=== PATIENT | male | born 1945 | race Caucasian/White ===

== ENCOUNTER 2017-08-22 11:17 | Inpatient (IN) ==
[~2017-08-22 11:17] MED LIST: ASPIRIN 325 MG TABLET PO ONE; DIAZEPAM 5 MG TABLET PO ONE; MAGNESIUM SULF RIDER 2 GM in PREMIX 1 EACH IV PRN; POTASSIUM CHLORIDE RIDER 10 MEQ in PREMIX 1 EACH IV PRN; diphenhydrAMINE CAP 25 MG CAPSULE PO ONE
[2017-08-22] MEDS ORDERED: methylPREDNISolone SOD SUC 125 MG/2 ML VIAL IM ONE (11:54)
[2017-08-22] MEDS ORDERED: methylPREDNISolone SOD SUC 125 MG/2 ML VIAL ONE (11:57)
[2017-08-22] MEDS ORDERED: diphenhydrAMINE CAP 25 MG CAPSULE ONE (11:57)
[2017-08-22] MEDS ORDERED: DIAZEPAM 5 MG TABLET ONE (11:57)
[2017-08-22] MEDS: SODIUM CHLORIDE 0.9% 1,000 ML IV SCH ×2 (12:00→18:09)
[2017-08-22] MEDS ORDERED: methylPREDNISolone SOD SUC 125 MG/2 ML VIAL IV ONE (12:07)
[2017-08-22] MEDS ORDERED: HYDROmorphone 2 MG/1 ML VIAL ONE (12:41)
[2017-08-22] MEDS ORDERED: MIDAZOLAM 2 MG/2 ML VIAL ONE (12:41)
[2017-08-22] MEDS ORDERED: HEPARIN/NACL 0.9% 2 UNITS/ML 2,000 ML IV ONE (12:41)
[2017-08-22] MEDS ORDERED: LIDOCAINE 1% 20 ML VIAL ONE (12:41)
[2017-08-22] MEDS ORDERED: NITROGLYCERIN DRIP 50 MG/250 ML BOTTLE IV ONE (12:49)
[2017-08-22] MEDS ORDERED: VERAPAMIL 5 MG/2 ML VIAL ONE (12:49)
[2017-08-22] MEDS ORDERED: ENOXAPARIN 30 MG/0.3 ML SYRINGE ONE (13:25)
[2017-08-22] MEDS ORDERED: SODIUM CHLORIDE 0.9% 1,000 ML IV SCH (14:00)
[2017-08-22] MEDS: HEPARIN DRIP 25,000 UNITS/500 ML PREMIX IV SCH (17:55)
[2017-08-22 18:07] LABS: Basophils # 0.1 10*3/uL (0.0-0.2); Basophils % 0.7 % (0.0-0.8); Eosinophils % 0.1 % (0.00-10.9); Hemoglobin 14.5 GM/DL (14.0-18.0); Immature Granulocytes % 0.9 %; Immature Granulocytes Absolute 0.07 #; Lymphocytes # 0.6 10*3/uL (1.4-4.0); Lymphocytes % 7.4 % (21.2-54.2); Mean Corpuscular HGB Conc 33.7 GM/DL (32-36); Mean Corpuscular Hemoglobin 32 PG (27-34); Mean Corpuscular Volume 93.9 FL (87-102); Mean Platelet Volume 11.5 FL (9.6-12.0); Monocytes # 0.1 10*3/uL (0.11-0.8); Monocytes % 1.2 % (1.7-12.7); Neutrophils # 6.7 10*3/uL (1.4-7.4); Neutrophils % 89.7 % (38.7-73.9); Platelet Count 198 T/CUMM (130-400); Red Blood Count 4.58 MC/CUMM (3.8-5.5); Red Cell Distribution Width 13.5 % (9.3-17.3); White Blood Count 7.5 T/CUMM (4-12)
[2017-08-22] MEDS ORDERED: CILOSTAZOL 100 MG TABLET PO SCH (21:00)
[2017-08-22] MEDS ORDERED: ATORVASTATIN 20 MG TABLET PO SCH (21:00)
[2017-08-22] MEDS: CHLORHEXIDINE 0.12% ORAL RINSE 60 ML BOTTLE SWISH/SPIT SCH (21:27)
[2017-08-22] MEDS: DICLOFENAC SODIUM 75 MG TABLET PO SCH (21:27)
[2017-08-22] MEDS: ASPIRIN EC 81 MG TABLET PO SCH (21:27)
[2017-08-22] MEDS: AMITRIPTYLINE 25 MG TABLET PO SCH (21:27)
[2017-08-22] MEDS: GABAPENTIN 300 MG CAPSULE PO SCH (21:27)
[2017-08-22] MEDS: AMITRIPTYLINE 100 MG TABLET PO SCH (21:27)
[2017-08-22] MEDS: ATORVASTATIN 80 MG TABLET PO SCH (21:27)
[2017-08-23 06:04] LABS: Basophils % 0.5 % (0.0-0.8); Eosinophils # 0.1 10*3/uL (0.0-0.87); Eosinophils % 0.6 % (0.00-10.9); Hematocrit 36.8 VOL% (42.0-52.0); Immature Granulocytes % 0.6 %; Immature Granulocytes Absolute 0.05 #; Lymphocytes # 1.7 10*3/uL (1.4-4.0); Lymphocytes % 20.9 % (21.2-54.2); Mean Corpuscular HGB Conc 33.7 GM/DL (32-36); Mean Corpuscular Hemoglobin 31 PG (27-34); Mean Corpuscular Volume 93.2 FL (87-102); Mean Platelet Volume 11.8 FL (9.6-12.0); Monocytes # 0.7 10*3/uL (0.11-0.8); Monocytes % 8.8 % (1.7-12.7); Neutrophils # 5.4 10*3/uL (1.4-7.4); Neutrophils % 68.6 % (38.7-73.9); Platelet Count 161 T/CUMM (130-400); Red Blood Count 3.95 MC/CUMM (3.8-5.5); Red Cell Distribution Width 13.4 % (9.3-17.3); White Blood Count 7.9 T/CUMM (4-12)
[2017-08-23 06:17] LABS: Hemoglobin 12.4 GM/DL (14.0-18.0)
[2017-08-23 06:54] LABS: Calcium 8.7 MG/DL (8.5-10.1); Magnesium 2.3 MG/DL (1.8-2.4); Osmolality,Calculated 275.7 MOS/KG (273-304); Potassium 3.6 MMOL/L (3.5-5.1)
[2017-08-23] MEDS ORDERED: OMEGA 3 ACID ETHYL ESTERS 1 GM CAPSULE PO SCH (09:00)
[2017-08-23] MEDS ORDERED: amLODIPine 10 MG TABLET PO SCH (09:00)
[2017-08-23] MEDS ORDERED: FOLIC ACID 1 MG TABLET PO SCH (09:00)
[2017-08-23] MEDS ORDERED: DULoxetine 30 MG CAPSULE PO SCH (09:00)
[2017-08-23] MEDS ORDERED: PANTOPRAZOLE 40 MG TABLET PO SCH (09:00)
[2017-08-23] MEDS ORDERED: METOPROLOL TARTRATE 25 MG TABLET PO SCH ×2 (09:00)
[2017-08-23] MEDS ORDERED: CALCIUM (CARBONATE)/VITAMIN D 600 MG-400 UNIT TABLET PO SCH (09:00)
[2017-08-23] MEDS: GABAPENTIN 300 MG CAPSULE PO SCH ×3 (09:05→21:02)
[2017-08-23] MEDS: DICLOFENAC SODIUM 75 MG TABLET PO SCH ×2 (09:06→21:02)
[2017-08-23] MEDS: CHLORHEXIDINE 0.12% ORAL RINSE 60 ML BOTTLE SWISH/SPIT SCH ×2 (09:06→21:26)
[2017-08-23] MEDS: HEPARIN DRIP 25,000 UNITS/500 ML PREMIX IV SCH (12:23)
[2017-08-23] MEDS: CHLORHEXIDINE 4% SOLN 118 ML BOTTLE TOP SCH ×2 (15:37→21:26)
[2017-08-23] MEDS ORDERED: METOPROLOL TARTRATE 50 MG TABLET PO SCH (16:19)
[2017-08-23] MEDS: ATORVASTATIN 80 MG TABLET PO SCH (21:02)
[2017-08-23] MEDS: AMITRIPTYLINE 100 MG TABLET PO SCH (21:02)
[2017-08-23] MEDS: AMITRIPTYLINE 25 MG TABLET PO SCH (21:02)
[2017-08-23] MEDS: ASPIRIN EC 81 MG TABLET PO SCH (21:02)
[2017-08-24] MEDS ORDERED: CEFUROXIME INJ 1,500 MG in SYRINGE 1 EACH IV ONE (05:00)
[2017-08-24 05:04] LABS: Allen Test Positive; Pt O2 Delivery Device Room Air
[2017-08-24 05:05] LABS: ABG Base Excess 0.5 MMOL/L (-2.5-2.5); ABG HCO3 25.1 MMOL/L (20-26); ABG Oxygen Saturation 94.4 % (95-100); ABG PCO2 40.2 MM HG (35-48); ABG PH 7.413 (7.35-7.45); ABG TCO2 26.3 MMOL/L (23-27)
[2017-08-24] MEDS ORDERED: TISSUE ADHESIVE 1 EACH APPLICATOR TOP ONE (05:21)
[2017-08-24] MEDS ORDERED: PAPAVERINE 60 MG/2 ML VIAL ONE (05:21)
[2017-08-24] MEDS ORDERED: VANCOMYCIN 1,000 MG VIAL ONE (05:22)
[2017-08-24 05:31] LABS: Basophils # 0.1 10*3/uL (0.0-0.2); Basophils % 1.1 % (0.0-0.8); Eosinophils # 0.4 10*3/uL (0.0-0.87); Eosinophils % 5.3 % (0.00-10.9); Hematocrit 40.8 VOL% (42.0-52.0); Hemoglobin 13.3 GM/DL (14.0-18.0); Immature Granulocytes % 0.4 %; Immature Granulocytes Absolute 0.03 #; Lymphocytes # 2.2 10*3/uL (1.4-4.0); Lymphocytes % 28.9 % (21.2-54.2); Mean Corpuscular HGB Conc 32.6 GM/DL (32-36); Mean Corpuscular Hemoglobin 31 PG (27-34); Mean Corpuscular Volume 96.5 FL (87-102); Mean Platelet Volume 11.2 FL (9.6-12.0); Monocytes # 0.8 10*3/uL (0.11-0.8); Neutrophils # 4.1 10*3/uL (1.4-7.4); Neutrophils % 54.3 % (38.7-73.9); Platelet Count 167 T/CUMM (130-400); Red Blood Count 4.23 MC/CUMM (3.8-5.5); Red Cell Distribution Width 13.8 % (9.3-17.3); White Blood Count 7.6 T/CUMM (4-12)
[2017-08-24] MEDS ORDERED: DIAZEPAM 5 MG TABLET ONE (05:39)
[2017-08-24] MEDS ORDERED: DIAZEPAM 5 MG TABLET PO ONE (05:39)
[2017-08-24] MEDS ORDERED: FAMOTIDINE 20 MG TABLET PO ONE (05:40)
[2017-08-24 05:47] LABS: PT Patient Result 10.3 SECS; Partial Thromboplastin Time 25.2 SECS (0-40)
[2017-08-24 06:06] LABS: Magnesium 2.3 MG/DL (1.8-2.4); Osmolality,Calculated 277.5 MOS/KG (273-304); Potassium 4.4 MMOL/L (3.5-5.1)
[2017-08-24] MEDS ORDERED: NITROGLYCERIN DRIP 50 MG/250 ML BOTTLE IV ONE ×2 (06:06→10:51)
[2017-08-24] MEDS ORDERED: HEPARIN/NACL 0.9% 2 UNITS/ML 1,000 ML IV ONE (06:06)
[2017-08-24] MEDS ORDERED: PHENYLEPHRINE DRIP 20 MG/250 ML PREMIX IV ONE ×3 (06:06→10:49)
[2017-08-24 07:24] LABS: ABG Base Excess -0.9 MMOL/L (-2.5-2.5); ABG HCO3 23.7 MMOL/L (20-26); ABG Oxygen Saturation 98.2 % (95-100); ABG PCO2 55.6 MM HG (35-48); ABG PH 7.292 (7.35-7.45); ABG TCO2 23.9 MMOL/L (23-27); Glucose Heart Surgery 102 MG/DL (74-106); Hematocrit Heart Surgery 39.3 PERCENT (42-52); Hemoglobin Heart Surgery 12.8 G/DL (14.0-18.0); Ionized Calcium Arterial 1.27 MMOL/L (1.21-1.46); PCO2 Patient Temp Arterial 55.6 MMHG; PH Patient Temp Arterial 7.292; Patient Temperature 37 CELCIUS; Potassium Heart/CVR 3.6 MMOL/L (3.5-5.1); Sodium Heart/CVR 138 MMOL/L (135-145)
[2017-08-24 08:17] LABS: Hematocrit Heart Surgery 27.1 PERCENT (42-52); Hemoglobin Heart Surgery 8.7 G/DL (14.0-18.0); PCO2 Patient Temp Venous 38.2 MM HG; PH Patient Temp Venous 7.448; PO2 Patient Temp Venous 41.7 MM HG; Potassium Heart/CVR 3.7 MMOL/L (3.5-5.1); VBG Base Excess 2.4 MEQ/L (0-4); VBG HCO3 26.3 MEQ/L (24-28); VBG Oxygen Saturation 79.6 %; VBG PCO2 40.1 MMHG (41-51); VBG PH 7.433; VBG PO2 44.7 MMHG (17-40)
[2017-08-24 08:45] LABS: Hematocrit Heart Surgery 26.6 PERCENT (42-52); Hemoglobin Heart Surgery 8.6 G/DL (14.0-18.0); PCO2 Patient Temp Venous 37.4 MM HG; PH Patient Temp Venous 7.465; PO2 Patient Temp Venous 37.3 MM HG; Potassium Heart/CVR 4.6 MMOL/L (3.5-5.1); VBG Base Excess 3.2 MEQ/L (0-4); VBG HCO3 26.9 MEQ/L (24-28); VBG Oxygen Saturation 74.8 %; VBG PCO2 39.3 MMHG (41-51); VBG PH 7.45
[2017-08-24] MEDS ORDERED: SODIUM BICARBONATE 50 MEQ/50 ML SYRINGE IV ONE ×2 (09:08→09:55)
[2017-08-24] MEDS ORDERED: CALCIUM CHLORIDE 1,000 MG/10 ML SYRINGE IV ONE (09:08)
[2017-08-24] MEDS ORDERED: ALBUMIN 5% 12.5 GM/250 ML VIAL IV ONE ×2 (09:09→10:43)
[2017-08-24] MEDS ORDERED: LIDOCAINE 100 MG/5 ML SYRINGE ONE (09:09)
[2017-08-24] MEDS ORDERED: EPINEPHrine 1 MG/10 ML SYRINGE ONE (09:09)
[2017-08-24 09:44] LABS: ABG Base Excess 1.5 MMOL/L (-2.5-2.5); ABG HCO3 25.7 MMOL/L (20-26); ABG PCO2 28.8 MM HG (35-48); ABG PH 7.524 (7.35-7.45); ABG TCO2 21.8 MMOL/L (23-27); Glucose Heart Surgery 166 MG/DL (74-106); Hematocrit Heart Surgery 27.6 PERCENT (42-52); Hemoglobin Heart Surgery 8.9 G/DL (14.0-18.0); Ionized Calcium Arterial 1.18 MMOL/L (1.21-1.46); PCO2 Patient Temp Arterial 28.8 MMHG; PH Patient Temp Arterial 7.524; Patient Temperature 37 CELCIUS; Potassium Heart/CVR 3.8 MMOL/L (3.5-5.1); Sodium Heart/CVR 133 MMOL/L (135-145)
[2017-08-24] MEDS ORDERED: PROTAMINE SULFATE 250 MG/25 ML VIAL IV ONE (09:55)
[2017-08-24] MEDS ORDERED: ALBUMIN 25% 25 GM/100 ML VIAL IV ONE (09:55)
[2017-08-24] MEDS ORDERED: MAGNESIUM SULFATE 1 GM/2 ML VIAL ONE (09:55)
[2017-08-24] MEDS ORDERED: DEXTROSE 5% KCL 20 MEQ 20 MEQ/1,000 ML BAG IV ONE (09:55)
[2017-08-24] MEDS ORDERED: HEPARIN 10,000 UNIT/10 ML VIAL ONE (09:55)
[2017-08-24] MEDS ORDERED: MANNITOL 12.5 GM/50 ML VIAL IV ONE (09:56)
[2017-08-24] MEDS ORDERED: methylPREDNISolone SOD SUC 1,000 MG/8 ML VIAL ONE (09:56)
[2017-08-24] MEDS ORDERED: PROTAMINE SULFATE 50 MG/5 ML VIAL IV ONE (09:56)
[2017-08-24] MEDS ORDERED: FUROSEMIDE 20 MG/2 ML VIAL ONE (09:56)
[2017-08-24] MEDS ORDERED: POTASSIUM CHLORIDE 20 MEQ/10 ML VIAL ONE (09:57)
[2017-08-24] MEDS ORDERED: PHENYLEPHRINE DRIP 40 MG/250 ML PREMIX IV ONE (10:12)
[2017-08-24 10:18] LABS: Apearance,Urine CLEAR (Clear); Bilirubin,Urine Negative (Negative); Blood, Urine Negative (Negative); Glucose,Urine (UA) Negative (Negative); Ketones,Urine Negative (Negative); Mucus,Urine Occasional /LPF (Occasional); Nitrite,Urine Negative (Negative); Protein,Urine Negative; RBC,Urine <1 /HPF (0-4); Squamous Epithelial Cell,Urine Occasional /HPF (0-10); Urine Color Yellow (Yellow); Urine Urobilinogen < 2.0 EU/DL (0.2-1.0); WBC,Urine <1 /HPF (0-6)
[2017-08-24] MEDS ORDERED: ACETAMINOPHEN 650 MG SUPP RECTAL PRN (10:37)
[2017-08-24] MEDS ORDERED: MAGNESIUM SULF RIDER 4 GM in PREMIX 1 EACH IV PRN (10:37)
[2017-08-24] MEDS ORDERED: ONDANSETRON 4 MG/2 ML VIAL IV PRN (10:37)
[2017-08-24] MEDS ORDERED: CHLORHEXIDINE 4% SOLN 118 ML BOTTLE TOP PRN (10:37)
[2017-08-24] MEDS ORDERED: MIDAZOLAM 2 MG/2 ML VIAL IV PRN (10:37)
[2017-08-24] MEDS ORDERED: SODIUM CHLORIDE 0.9% 250 ML IV PRN (10:37)
[2017-08-24] MEDS ORDERED: POTASSIUM CHLORIDE RIDER 10 MEQ in PREMIX 1 EACH IV PRN (10:37)
[2017-08-24] MEDS ORDERED: MAGNESIUM SULF RIDER 2 GM in PREMIX 1 EACH IV PRN (10:37)
[2017-08-24] MEDS ORDERED: CALCIUM CHLORIDE 1,000 MG/10 ML SYRINGE IV PRN (10:37)
[2017-08-24] MEDS ORDERED: DEXTROSE 50% 25 GM/50 ML VIAL IV PRN ×2 (10:37)
[2017-08-24] MEDS ORDERED: INSULIN REGULAR 100 UNIT/ML IV PRN (10:37)
[2017-08-24] MEDS ORDERED: MORPHINE 10 MG/1 ML VIAL IV PRN (10:37)
[2017-08-24] MEDS: SODIUM CHLORIDE 0.45% 1,000 ML IV SCH ×2 (10:40)
[2017-08-24] MEDS: PHENYLEPHRINE DRIP 40 MG/250 ML PREMIX IV SCH (10:40)
[2017-08-24] MEDS ORDERED: CALCIUM CHLORIDE 1,000 MG/10 ML VIAL IV ONE (10:49)
[2017-08-24] MEDS ORDERED: SUFentanil 250 MCG/5 ML AMP ONE (10:49)
[2017-08-24] MEDS ORDERED: VECURONIUM 10 MG VIAL IV ONE (10:50)
[2017-08-24] MEDS ORDERED: ePHEDrine 50 MG/ML AMP ONE (10:50)
[2017-08-24] MEDS ORDERED: EPINEPHrine 1 MG/ML VIAL ONE (10:50)
[2017-08-24] MEDS ORDERED: MIDAZOLAM 10 MG/2 ML VIAL ONE (10:50)
[2017-08-24] MEDS ORDERED: LACTATED RINGERS 1,000 ML IV ONE (10:51)
[2017-08-24] MEDS ORDERED: SODIUM CHLORIDE 0.9% 250 ML IV ONE (10:51)
[2017-08-24] MEDS ORDERED: SODIUM CHLORIDE 0.9% 1,000 ML IV ONE (10:51)
[2017-08-24] MEDS: ALBUMIN 5% 12.5 GM in PREMIX 1 EACH IV PRN (11:00)
[2017-08-24] MEDS ORDERED: LACTATED RINGERS 1,000 ML IV PRN (11:00)
[2017-08-24 11:39] LABS: ABG Base Excess 1.2 MMOL/L (-2.5-2.5); ABG HCO3 25.4 MMOL/L (20-26); ABG Oxygen Saturation 97.1 % (95-100); ABG PCO2 40.4 MM HG (35-48); ABG PH 7.413 (7.35-7.45); ABG TCO2 23.5 MMOL/L (23-27); Glucose Heart Surgery 147 MG/DL (74-106); Hemoglobin Heart Surgery 9.7 G/DL (14.0-18.0); Potassium Heart/CVR 3.5 MMOL/L (3.5-5.1)
[2017-08-24 11:46] LABS: Basophils # 0.1 10*3/uL (0.0-0.2); Basophils % 0.5 % (0.0-0.8); Eosinophils # 0.1 10*3/uL (0.0-0.87); Eosinophils % 0.9 % (0.00-10.9); Hematocrit 28.7 VOL% (42.0-52.0); Immature Granulocytes % 0.8 %; Lymphocytes # 0.6 10*3/uL (1.4-4.0); Lymphocytes % 5.2 % (21.2-54.2); Mean Corpuscular HGB Conc 33.4 GM/DL (32-36); Mean Corpuscular Hemoglobin 32 PG (27-34); Mean Corpuscular Volume 95.3 FL (87-102); Mean Platelet Volume 11.6 FL (9.6-12.0); Monocytes # 0.6 10*3/uL (0.11-0.8); Neutrophils # 10.7 10*3/uL (1.4-7.4); Neutrophils % 87.6 % (38.7-73.9); Red Cell Distribution Width 13.8 % (9.3-17.3)
[2017-08-24 11:50] LABS: Hemoglobin 9.6 GM/DL (14.0-18.0); Platelet Count 154 T/CUMM (130-400); Red Blood Count 3.01 MC/CUMM (3.8-5.5); White Blood Count 12.2 T/CUMM (4-12)
[2017-08-24 11:52] LABS: INR 1.2; PT Patient Result 12.2 SECS; Partial Thromboplastin Time 26.1 SECS (0-40)
[2017-08-24 11:54] LABS: Calcium 9.2 MG/DL (8.5-10.1); Magnesium 2.3 MG/DL (1.8-2.4); Osmolality,Calculated 279.5 MOS/KG (273-304); Potassium 3.7 MMOL/L (3.5-5.1)
[2017-08-24] MEDS ORDERED: SODIUM CHLORIDE 0.9% 1,000 ML IV PRN (11:57)
[2017-08-24 12:05] LABS: Lactic Acid 1.3 MMOL/L (0.4-2.0)
[2017-08-24 12:08] LABS: Band Neutrophils 3 % (0-10); Eosinophils 3 % (0-10); Giant Platelets Few; Hypochromasia 1+; Lymphocytes 3 % (20-55); Platelet Estimate Normal; Segmented Neutrophils 87 % (50-85); Total Cells Counted 100
[2017-08-24 12:30] LABS: Hematocrit Heart Surgery 29.1 PERCENT (42-52); Hemoglobin Heart Surgery 9.4 G/DL (14.0-18.0); PCO2 Patient Temp Venous 54.1 MM HG; PH Patient Temp Venous 7.324; PO2 Patient Temp Venous 36.3 MM HG; Potassium Heart/CVR 3.6 MMOL/L (3.5-5.1); VBG Base Excess 1.3 MEQ/L (0-4); VBG Oxygen Saturation 58.8 %; VBG PCO2 54.1 MMHG (41-51); VBG PH 7.324; VBG PO2 36.3 MMHG (17-40)
[2017-08-24] MEDS: POTASSIUM CHLORIDE RIDER 20 MEQ in PREMIX 1 EACH IV PRN (13:04)
[2017-08-24] MEDS ORDERED: POTASSIUM CHLORIDE RIDER 10 MEQ in PREMIX 1 EACH IV SCH (15:00)
[2017-08-24 16:00] LABS: ABG Base Excess -0.1 MMOL/L (-2.5-2.5); ABG HCO3 25.9 MMOL/L (20-26); ABG Oxygen Saturation 94.8 % (95-100); ABG PCO2 48.5 MM HG (35-48); ABG PH 7.345 (7.35-7.45); ABG TCO2 27.4 MMOL/L (23-27); Glucose Heart Surgery 178 MG/DL (74-106); Hemoglobin Heart Surgery 9.1 G/DL (14.0-18.0); Potassium Heart/CVR 4.3 MMOL/L (3.5-5.1)
[2017-08-24] MEDS: MORPHINE 2 MG/1 ML SYRINGE IV PRN ×3 (16:33→23:04)
[2017-08-24] MEDS ORDERED: LACTATED RINGERS 500 ML IV ONE (17:00)
[2017-08-24 17:15] LABS: Hemoglobin Heart Surgery 8.7 G/DL (14.0-18.0); PCO2 Patient Temp Venous 58.5 MM HG; PH Patient Temp Venous 7.28; PO2 Patient Temp Venous 32.8 MM HG; Potassium Heart/CVR 4.7 MMOL/L (3.5-5.1); VBG HCO3 23.8 MEQ/L (24-28); VBG Oxygen Saturation 50.5 %; VBG PCO2 58.5 MMHG (41-51); VBG PH 7.28; VBG PO2 32.8 MMHG (17-40)
[2017-08-24] MEDS: INSULIN REGULAR DRIP 100 ML IV SCH (17:54)
[2017-08-24] MEDS: CEFUROXIME INJ 1,500 MG in SYRINGE 1 EACH IV SCH (19:29)
[2017-08-24 20:25] LABS: ABG Base Excess -0.3 MMOL/L (-2.5-2.5); ABG HCO3 24.1 MMOL/L (20-26); ABG Oxygen Saturation 97.7 % (95-100); ABG PCO2 45.1 MM HG (35-48); ABG PH 7.356 (7.35-7.45); ABG TCO2 23.7 MMOL/L (23-27); Glucose Heart Surgery 158 MG/DL (74-106); Hematocrit Heart Surgery 24.7 PERCENT (42-52); Hemoglobin Heart Surgery 7.9 G/DL (14.0-18.0); Potassium Heart/CVR 4.2 MMOL/L (3.5-5.1)
[2017-08-24] MEDS: CHLORHEXIDINE 0.12% ORAL RINSE 60 ML BOTTLE SWISH/SPIT SCH (22:34)
[2017-08-25] MEDS: SODIUM CHLORIDE 0.45% 1,000 ML IV SCH ×4 (00:15→15:40)
[2017-08-25] MEDS: ALBUMIN 5% 12.5 GM in PREMIX 1 EACH IV PRN (00:24)
[2017-08-25 03:56] LABS: Basophils % 0.1 % (0.0-0.8); Hematocrit 25.4 VOL% (42.0-52.0); Hemoglobin 8.3 GM/DL (14.0-18.0); Immature Granulocytes % 0.5 %; Immature Granulocytes Absolute 0.06 #; Lymphocytes # 0.7 10*3/uL (1.4-4.0); Lymphocytes % 4.9 % (21.2-54.2); Mean Corpuscular HGB Conc 32.7 GM/DL (32-36); Mean Corpuscular Hemoglobin 32 PG (27-34); Mean Corpuscular Volume 97.3 FL (87-102); Mean Platelet Volume 11.2 FL (9.6-12.0); Monocytes # 1.5 10*3/uL (0.11-0.8); Monocytes % 11.4 % (1.7-12.7); Neutrophils % 83.1 % (38.7-73.9); Platelet Count 179 T/CUMM (130-400); Red Blood Count 2.61 MC/CUMM (3.8-5.5); Red Cell Distribution Width 14.5 % (9.3-17.3); White Blood Count 13.2 T/CUMM (4-12)
[2017-08-25 04:21] LABS: Magnesium 1.9 MG/DL (1.8-2.4); Osmolality,Calculated 277.8 MOS/KG (273-304); Potassium 4.2 MMOL/L (3.5-5.1)
[2017-08-25] MEDS: CEFUROXIME INJ 1,500 MG in SYRINGE 1 EACH IV SCH ×2 (06:19→17:54)
[2017-08-25 06:21] LABS: Band Neutrophils 1 % (0-10); Lymphocytes 7 % (20-55); Segmented Neutrophils 86 % (50-85); Total Cells Counted 100
[2017-08-25 06:35] LABS: Hypochromasia Slight; Platelet Estimate Normal
[2017-08-25] MEDS: FUROSEMIDE 40 MG TABLET PO SCH (08:49)
[2017-08-25] MEDS: ASPIRIN EC 325 MG TABLET PO SCH (08:49)
[2017-08-25] MEDS: CHLORHEXIDINE 0.12% ORAL RINSE 60 ML BOTTLE SWISH/SPIT SCH ×2 (08:49→21:07)
[2017-08-25] MEDS: INSULIN REGULAR DRIP 100 ML IV SCH (15:37)
[2017-08-25] MEDS: PHENYLEPHRINE DRIP 40 MG/250 ML PREMIX IV SCH (15:38)
[2017-08-25] MEDS: ALBUTEROL 2.5 MG/3 ML NEB RESP TX SCH ×3 (15:44→23:30)
[2017-08-25] MEDS: ATORVASTATIN 40 MG TABLET PO SCH (21:07)
[2017-08-26] MEDS: ALBUTEROL 2.5 MG/3 ML NEB RESP TX SCH ×5 (02:37→19:29)
[2017-08-26 03:49] LABS: Basophils % 0.1 % (0.0-0.8); Hematocrit 25.9 VOL% (42.0-52.0); Hemoglobin 8.6 GM/DL (14.0-18.0); Immature Granulocytes Absolute 0.12 #; Lymphocytes # 0.8 10*3/uL (1.4-4.0); Lymphocytes % 6.9 % (21.2-54.2); Mean Corpuscular HGB Conc 33.2 GM/DL (32-36); Mean Corpuscular Hemoglobin 32 PG (27-34); Mean Corpuscular Volume 95.2 FL (87-102); Mean Platelet Volume 11.3 FL (9.6-12.0); Monocytes # 1.2 10*3/uL (0.11-0.8); Monocytes % 10.4 % (1.7-12.7); Neutrophils # 9.5 10*3/uL (1.4-7.4); Neutrophils % 81.6 % (38.7-73.9); Platelet Count 124 T/CUMM (130-400); Red Blood Count 2.72 MC/CUMM (3.8-5.5); Red Cell Distribution Width 14.9 % (9.3-17.3); White Blood Count 11.6 T/CUMM (4-12)
[2017-08-26 04:48] LABS: Calcium 8.2 MG/DL (8.5-10.1); Magnesium 2.5 MG/DL (1.8-2.4); Osmolality,Calculated 278.5 MOS/KG (273-304); Potassium 3.9 MMOL/L (3.5-5.1)
[2017-08-26] MEDS: MORPHINE 2 MG/1 ML SYRINGE IV PRN ×3 (06:10→20:59)
[2017-08-26] MEDS: POTASSIUM CHLORIDE RIDER 20 MEQ in PREMIX 1 EACH IV PRN (06:10)
[2017-08-26] MEDS: FUROSEMIDE 40 MG TABLET PO SCH (08:15)
[2017-08-26] MEDS: CHLORHEXIDINE 0.12% ORAL RINSE 60 ML BOTTLE SWISH/SPIT SCH ×2 (08:15→20:53)
[2017-08-26] MEDS: ASPIRIN EC 325 MG TABLET PO SCH (08:15)
[2017-08-26] MEDS ORDERED: POTASSIUM CHLORIDE 10 MEQ TABLET PO ONE (08:21)
[2017-08-26] MEDS: DULoxetine 30 MG CAPSULE PO SCH (08:49)
[2017-08-26] MEDS ORDERED: METOPROLOL TARTRATE 25 MG TABLET PO SCH (09:00)
[2017-08-26] MEDS: GABAPENTIN 300 MG CAPSULE PO SCH ×3 (09:13→20:50)
[2017-08-26] MEDS: PHENYLEPHRINE DRIP 40 MG/250 ML PREMIX IV SCH (14:18)
[2017-08-26] MEDS: CHLORHEXIDINE 4% SOLN 118 ML BOTTLE TOP SCH (14:18)
[2017-08-26] MEDS: SODIUM CHLORIDE 0.9% 1,000 ML IV SCH ×2 (14:19→14:20)
[2017-08-26] MEDS: HEPARIN DRIP 25,000 UNITS/500 ML PREMIX IV SCH (14:20)
[2017-08-26] MEDS: ATORVASTATIN 40 MG TABLET PO SCH (20:49)
[2017-08-26] MEDS: AMITRIPTYLINE 100 MG TABLET PO SCH (20:53)
[2017-08-26] MEDS: METOPROLOL TARTRATE 50 MG TABLET PO SCH (20:53)
[2017-08-26] MEDS: AMITRIPTYLINE 25 MG TABLET PO SCH (20:53)
[2017-08-27] MEDS: ALBUTEROL 2.5 MG/3 ML NEB RESP TX SCH ×5 (00:22→14:56)
[2017-08-27] MEDS ORDERED: HALOPERIDOL 5 MG/ML AMP IM ONE (00:58)
[2017-08-27 04:55] LABS: Basophils % 0.1 % (0.0-0.8); Eosinophils % 0.1 % (0.00-10.9); Hematocrit 23.6 VOL% (42.0-52.0); Hemoglobin 8.1 GM/DL (14.0-18.0); Immature Granulocytes % 0.8 %; Immature Granulocytes Absolute 0.09 #; Lymphocytes # 1.1 10*3/uL (1.4-4.0); Lymphocytes % 9.7 % (21.2-54.2); Mean Corpuscular HGB Conc 34.3 GM/DL (32-36); Mean Corpuscular Hemoglobin 32 PG (27-34); Mean Corpuscular Volume 92.9 FL (87-102); Mean Platelet Volume 11.5 FL (9.6-12.0); Monocytes # 1.4 10*3/uL (0.11-0.8); Monocytes % 12.6 % (1.7-12.7); Neutrophils # 8.4 10*3/uL (1.4-7.4); Neutrophils % 76.7 % (38.7-73.9); Platelet Count 132 T/CUMM (130-400); Red Blood Count 2.54 MC/CUMM (3.8-5.5); Red Cell Distribution Width 14.3 % (9.3-17.3); White Blood Count 10.9 T/CUMM (4-12)
[2017-08-27 05:25] LABS: Calcium 7.6 MG/DL (8.5-10.1); Magnesium 2.3 MG/DL (1.8-2.4); Osmolality,Calculated 275.8 MOS/KG (273-304); Potassium 4.1 MMOL/L (3.5-5.1)
[2017-08-27] MEDS ORDERED: SODIUM CHLORIDE 0.9% 1,000 ML IV PRN (08:31)
[2017-08-27] MEDS ORDERED: FUROSEMIDE 40 MG/4 ML VIAL IV ONE (08:34)
[2017-08-27] MEDS ORDERED: BISACODYL 5 MG TABLET PO PRN (10:33)
[2017-08-27] MEDS ORDERED: SODIUM PHOSPHATE ENEMA 133 ML BOTTLE RECTAL PRN (10:34)
[2017-08-27] MEDS: ASPIRIN EC 325 MG TABLET PO SCH (11:29)
[2017-08-27] MEDS: DULoxetine 30 MG CAPSULE PO SCH (11:30)
[2017-08-27] MEDS: FUROSEMIDE 40 MG TABLET PO SCH (11:31)
[2017-08-27] MEDS: GABAPENTIN 300 MG CAPSULE PO SCH ×3 (11:32→21:23)
[2017-08-27] MEDS: METOPROLOL TARTRATE 50 MG TABLET PO SCH ×2 (11:32→21:23)
[2017-08-27] MEDS: DOCUSATE SODIUM 100 MG CAPSULE PO SCH ×2 (11:33→21:23)
[2017-08-27] MEDS: CHLORHEXIDINE 0.12% ORAL RINSE 60 ML BOTTLE SWISH/SPIT SCH (11:40)
[2017-08-27] MEDS ORDERED: FUROSEMIDE 40 MG/4 ML VIAL ONE (15:00)
[2017-08-27] MEDS: CLORAZEPATE 7.5 MG TABLET PO PRN ×2 (17:30→21:22)
[2017-08-27] MEDS: LEVALBUTEROL 0.63 MG/3 ML NEB RESP TX SCH ×2 (18:50→23:50)
[2017-08-27] MEDS: ATORVASTATIN 40 MG TABLET PO SCH (21:23)
[2017-08-27] MEDS: AMITRIPTYLINE 100 MG TABLET PO SCH (21:23)
[2017-08-27] MEDS: AMITRIPTYLINE 25 MG TABLET PO SCH (21:23)
[2017-08-28 00:11] LABS: Hematocrit 28.4 VOL% (42.0-52.0); Hemoglobin 9.7 GM/DL (14.0-18.0)
[2017-08-28] MEDS: CLORAZEPATE 7.5 MG TABLET PO PRN (01:25)
[2017-08-28] MEDS: LEVALBUTEROL 0.63 MG/3 ML NEB RESP TX SCH ×2 (03:30→07:20)
[2017-08-28 05:24] LABS: Basophils # 0.1 10*3/uL (0.0-0.2); Basophils % 0.5 % (0.0-0.8); Eosinophils # 0.4 10*3/uL (0.0-0.87); Eosinophils % 4.5 % (0.00-10.9); Hematocrit 29.9 VOL% (42.0-52.0); Hemoglobin 10.1 GM/DL (14.0-18.0); Immature Granulocytes % 0.7 %; Immature Granulocytes Absolute 0.07 #; Lymphocytes # 1.3 10*3/uL (1.4-4.0); Lymphocytes % 13.2 % (21.2-54.2); Mean Corpuscular HGB Conc 33.8 GM/DL (32-36); Mean Corpuscular Hemoglobin 31 PG (27-34); Mean Corpuscular Volume 92.6 FL (87-102); Monocytes # 1.4 10*3/uL (0.11-0.8); Monocytes % 14.6 % (1.7-12.7); Neutrophils # 6.3 10*3/uL (1.4-7.4); Neutrophils % 66.5 % (38.7-73.9); Platelet Count 158 T/CUMM (130-400); Red Blood Count 3.23 MC/CUMM (3.8-5.5); Red Cell Distribution Width 14.7 % (9.3-17.3); White Blood Count 9.5 T/CUMM (4-12)
[2017-08-28] MEDS: CHLORHEXIDINE 0.12% ORAL RINSE 60 ML BOTTLE SWISH/SPIT SCH ×2 (05:56→08:48)
[2017-08-28 07:33] LABS: Calcium 7.9 MG/DL (8.5-10.1); Osmolality,Calculated 276.8 MOS/KG (273-304); Potassium 3.8 MMOL/L (3.5-5.1)
[2017-08-28] MEDS: METOPROLOL TARTRATE 50 MG TABLET PO SCH (08:44)
[2017-08-28] MEDS: FUROSEMIDE 40 MG TABLET PO SCH (08:44)
[2017-08-28] MEDS: DOCUSATE SODIUM 100 MG CAPSULE PO SCH (08:44)
[2017-08-28] MEDS: GABAPENTIN 300 MG CAPSULE PO SCH (08:44)
[2017-08-28] MEDS: ASPIRIN EC 325 MG TABLET PO SCH (08:44)
[2017-08-28] MEDS: DULoxetine 30 MG CAPSULE PO SCH (08:44)
[2017-08-28 12:00] VITALS: BP 99/67
== END 2017-08-28 12:20 | disposition home health service (06) | DRG 234 ==
LOC: N.CL 11:17 → N.TELEN 15:15 → N.CVR 08-24 07:32 → N.ICU 08-25 15:25 → N.TELES 08-26 14:06
PROVIDERS: ADMIT Internal Medicine Cardiovascular Disease; ATTEND Internal Medicine Cardiovascular Disease
PROC: CLCCHCL (ICD-10-PCS; 2017-08-22 12:45)